=== PATIENT | male | born 1975 | race Caucasian/White ===

== ENCOUNTER 2019-05-09 15:33 | Emergency (ER) | payer SELFPAY ==
[~2019-05-09] VITALS: Ht 190.5 cm; Wt 104.3 kg
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
[2019-05-09 20:11] VITALS: BP 143/86
== END 2019-05-09 20:13 | disposition home or self-care (01) ==
LOC: ER 15:33
DX: M54.5 Low back pain (principal); M79.661 Pain in right lower leg; V53.5XXA Driver of pick-up truck or van injured in collision with car, pick-up truck or van in traffic accident, initial encounter; Y92.488 Other paved roadways as the place of occurrence of the external cause
CPT/HCPCS: 72040; 72100; 99283